=== PATIENT | male | born 1985 | race Caucasian/White ===

== ENCOUNTER 2020-05-12 20:46 | Emergency (ER) | payer BC, OTHER ==
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
--- NOTE | 2020-05-13 08:05 | CR ---
Chest: 2 views of the chest were obtained. Comparison: Prior chest x-ray of 12/18/12. Heart size and mediastinum are normal. Prior sternotomy is seen with prosthetic heart valves noted. Very minimal scarring within the left base is seen. Lungs otherwise are clear. Bony structures show nothing acute. Impression: 1. Prior sternotomy and prosthetic heart valve. 2. Slight scarring within the left lung base. 3. Nothing acute is appreciated on 2 view chest x-ray. Diagnostic code #2
== END 2020-05-13 00:18 | disposition home or self-care (01) ==
LOC: JD.ED 20:46
DX: S20.212A Contusion of left front wall of thorax, initial encounter (principal); Z79.82 Long term (current) use of aspirin; Z79.01 Long term (current) use of anticoagulants; Z79.899 Other long term (current) drug therapy; Y04.0XXA Assault by unarmed brawl or fight, initial encounter
CPT/HCPCS: 36415; 71046; 71046-26; 80053; 82553; 83880; 84484; 85025; 85610; 93005; 93010; 99283; 99284-25

== ENCOUNTER 2020-06-14 09:35 | Emergency (ER) | payer OTHER ==
[2020-06-14] MEDS ORDERED: HYDROmorphone 1 MG/ML Syringe IVPUSH ONE (10:17)
[2020-06-14] MEDS ORDERED: Metoclopramide 10 MG/2 ML SDV IVPUSH ONE (10:17)
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
[2020-06-14] MEDS ORDERED: Dextrose 5%-0.9% NaCl 1,000 ML IV SCH (10:30)
[2020-06-14] MEDS ORDERED: Sodium Chloride 0.9% 10 ML Syringe FLUSH PRN (10:36)
[2020-06-14] MEDS ORDERED: Iopamidol 612 MG/ML 50 ML SDV IVPUSH ONE (10:36)
[2020-06-14] MEDS ORDERED: Iopamidol 612 MG/ML 100 ML Bottle IVPUSH ONE (10:36)
--- NOTE | 2020-06-14 11:24 | CT ---
Head CT Technique: Multiple axial sections through the brain were obtained. Intravenous contrast was not utilized. Reconstructed coronal and sagittal images were obtained. Comparison: No prior intracranial imaging is available. Findings: Ventricles along with basal cisterns and sulci over the convexities appear within normal limits for the patient's age. No abnormal parenchymal densities are seen. No evidence of intracranial hemorrhage. No midline shift or mass-effect is seen. Bone window settings were reviewed which show scattered mucosal thickening within the maxillary, ethmoid and frontal sinuses. Visualized mastoid sinuses show nothing acute. No acute calvarial finding is seen. Impression: 1. Findings within the paranasal sinuses compatible with mild chronic sinusitis. 2. No acute intracranial abnormality is appreciated. Diagnostic code #2
--- NOTE | 2020-06-14 11:28 | CT ---
CT cervical spine Technique: Multiple axial sections were obtained from above C1 inferiorly to the bottom of T3. Reconstructed coronal and sagittal images were obtained. Findings: Mild disc space narrowing is noted at C5-6 as well as anterior disc space narrowing at C3-4 and C4-5. Vertebral body heights are maintained. Fractures are seen within the tip of the spinous process of C7 and T1 which appear to be slightly sclerotic and are most likely old. No definite acute fracture line is appreciated. No bony central or bony neural foraminal stenosis is seen. No abnormal subluxation is seen. Slight scoliosis is noted on the AP reconstructed views. Impression: 1. Fractures within the tip of the spinous process of C7 and T1 which appear slightly sclerotic and are most likely old unless patient has acute symptoms to the lower cervical spine posteriorly. 2. Minimal degenerative change. 3. Slight scoliosis. 4. No additional fracture or subluxation is seen. Diagnostic code #3
--- NOTE | 2020-06-14 11:38 | CT ---
CT chest Technique: Multiple axial sections through the chest were obtained. Intravenous contrast was utilized. Comparison: Prior chest x-rays of 05/12/20 and 12/18/12. Findings: No pericardial thickening is seen. Aortic valve is noted. Prior sternotomy is seen. Thoracic aorta shows no aneurysm. No mediastinal or hilar adenopathy is seen. Visualized lung shows nothing acute. No acute osseous finding is appreciated on bone window settings. Impression: 1. Prosthetic aortic valve. Sternotomy wires. 2. Nothing acute is appreciated on CT study of the chest. Diagnostic code #2 CT abdomen and pelvis Technique: Multiple axial sections were obtained from above the dome of the diaphragm inferiorly through the pubic symphysis. Intravenous contrast was utilized. No oral contrast was given. Reconstructed coronal and sagittal images were obtained. Findings: Liver shows no focal parenchymal abnormality. Spleen appears within normal limits. Adrenal glands show no nodule. Pancreas appears within normal limits. Gallbladder contains no calcified gallstones. Kidneys show symmetric contrast enhancement with no hydronephrosis or mass being seen. Abdominal aorta shows no aneurysm. No retroperitoneal adenopathy or mesenteric abnormalities are seen. Appendix is seen which is normal in size. No pelvic mass or adenopathy is noted. No free fluid or inflammatory change is appreciated. Bone window settings were reviewed which show no acute osseous finding. Impression: 1. Nothing acute is seen on CT study of the abdomen and pelvis. Diagnostic code #1
--- NOTE | 2020-06-14 11:39 | CT ---
CT lumbar spine Technique: Multiple axial sections through the lumbar spine were obtained. Reconstructed coronal and sagittal images were obtained. Findings: Mild vacuum phenomena is seen within the sacroiliac joints. No bony central or bony neural foraminal stenosis is seen. No acute fracture or abnormal subluxation is appreciated. Slight disc space narrowing is noted at L4-5. Impression: 1. Minimal degenerative change. 2. Nothing acute is seen on CT study of the lumbar spine. Diagnostic code #2
--- NOTE | 2020-06-14 11:39 | CR ---
Right clavicle: 2 views of the right clavicle were obtained. Slight degenerative change within the acromioclavicular joint with no abnormal inferior spurring. Sternotomy wires are seen. No acute fracture or other abnormality is seen. Impression: 1. Findings believed to be incidental. 2. No acute fracture is seen. Diagnostic code #2
--- NOTE | 2020-06-14 11:43 | CT ---
CT thoracic spine Technique: Multiple axial sections through the thoracic spine were obtained. Reconstructed coronal and sagittal images were obtained. Findings: Spinous process fracture is noted within C7 and T1. As mentioned on cervical spine exam, these are most likely old. Additional bony densities are seen off the spinous process at T3 and T6 which are likely old. Vertebral body heights and disc spaces are maintained. Vertebral bodies and posterior arches are intact with no fracture being seen. No bony central or bony neural foraminal stenosis is seen. Impression: 1. Fractures believed to be old within the tip of the spinous process of C7 and T1. Smaller findings also noted at T3 and T6 which are likely old. 2. Nothing acute is appreciated on CT study of the thoracic spine. Diagnostic code #2
== END 2020-06-14 12:44 | disposition home or self-care (01) ==
LOC: JD.ED 09:35
DX: S13.4XXA Sprain of ligaments of cervical spine, initial encounter (principal); S40.011A Contusion of right shoulder, initial encounter; S70.11XA Contusion of right thigh, initial encounter; S20.211A Contusion of right front wall of thorax, initial encounter; S70.12XA Contusion of left thigh, initial encounter; V48.5XXA Car driver injured in noncollision transport accident in traffic accident, initial encounter
CPT/HCPCS: 36415; 70450; 70450-26; 71260; 71260-26; 72125; 72125-26; 72128; 72128-26; 72131; 72131-26; 73000-26-RT; 73000-RT; 74177; 74177-26; 80053; 82150; 83735; 84484; 85025; 85610; 85730; 96374; 96375; 99284; 99284-25; J1170; J2765; J7042; Q9967

== ENCOUNTER 2020-10-03 14:10 | Emergency (ER) | payer OTHER ==
--- NOTE | 2020-10-03 14:59 | EDM.PDOC ---
ED HPI GENERAL MEDICAL PROBLEM - General Chief Complaint: Cardiovascular Problem Stated Complaint: CHEST PRESSURE Time Seen by Provider: 10/03/20 14:50 Source of Information: Reports: Patient History Limitations: Reports: No Limitations - History of Present Illness INITIAL COMMENTS - FREE TEXT/NARRATIVE: 35-year-old male presents to the ED in the accompaniment of his after developing central chest pressure discomfort rating up into the left upper anterior chest but not into the neck or down his left arm about an hour prior to coming to the ED. He estimates the chest discomfort lasted a good half hour. It is eased up a good deal since coming into the ED. Patient takes Coumadin 7 mg daily due to mechanical valve replacing his aortic valve in 2019. He does not know if he has had a history of congestive heart failure. He states that shortly after surgery when he was in [place] he was drinking alcohol heavily with the Coumadin and developed a cardiac tamponade requiring drainage of the pericardium. His initial ECG done in the ED reveals a diffuse early repolarization pattern particular noted in V1 to be [address] then looks like [address] segment elevation V5 and V6 and certainly ST segment elevation in leads I, II, and aVF worrisome for acute inferior wall myocardial infarction. Tall R waves in lead I suggest left ventricular perjury pattern. This could suggest a diffuse pericarditis versus myocardial infarction. He would be unlikely to infarct at his age and also if his warfarin or Coumadin level is satisfactory. He was given 4 baby aspirin chewed at this time will find other ECGs to compare to. Onset: Today, Sudden Onset Date: 10/03/20 Onset Time: 14:00 Duration: Minutes:, Improving Location: Reports: Chest (Much improved after getting into the emergency room. Left upper) Quality: Reports: Ache ( anterior precordial chest), Pressure Severity: Moderate (He rated as an 8 out of 10 initially but is down to a 1 out of 10 now.) Improves with: Reports: Rest Worsens with: Reports: Movement (Is worse with movement.) Context: Denies: Activity, Exercise, Lifting, Sick Contact, Trauma Associated Symptoms: Reports: Chest Pain, Loss of Appetite, Malaise, Shortness of Breath. 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: Other (see below) (Medications.) Chest Pain Score (Numeric/FACES): 3 - Related Data Allergies Allergy/AdvReac Type Severity Reaction Status Date / Time No Known Allergies Allergy Verified 06/14/20 10:12 Home Meds: Home Meds Aspirin [Aspirin EC] 81 mg PO DAILY 05/12/20 [History] Losartan [Cozaar] 100 mg PO BID 05/12/20 [History] Warfarin Sodium [Jantoven] 7 mg PO DAILY 05/12/20 [History] atorvaSTATin [Lipitor] 20 mg PO BEDTIME 05/12/20 [History] carvediloL [Carvedilol] 25 mg PO DAILY 05/12/20 [History] oxyCODONE HCl/Acetaminophen [Percocet 10-325 mg Tablet] 1 - 2 each PO Q4H PRN #20 tablet 06/14/20 [Rx] Colchicine 0.6 mg PO BID #20 capsule 10/03/20 [Rx] predniSONE [Prednisone] 20 mg PO ASDIRECTED #18 tablet 10/03/20 [Rx] Past Medical History Cardiovascular History: Reports: Heart Valve Replacement (Conical aortic valve replacement in 2019), Other (See Below) (She did develop hemorrhagic pericarditis and cardiac tamponade requiring drainage within 2 months of surgery. It was blamed on drinking alcohol in high amounts with Coumadin.) Musculoskeletal History: Reports: Fracture Endocrine/Metabolic History: Reports: Obesity/BMI 30+ Hematologic History: Reports: Anticoagulation Therapy - Past Surgical History Cardiovascular Surgical History: Reports: Valve Replacement, Other (See Below) Other Cardiovascular Surgeries/Procedures: Mechanical left ventricle valve replacement and aorta root repair in January 2019. Social & Family History - Tobacco Use Tobacco Use Status *Q: Never Tobacco User - Caffeine Use Caffeine Use: Reports: Tea - Recreational Drug Use Recreational Drug Use: Yes Drug Use in Last 12 Months: Yes Recreational Drug Type: Reports: Marijuana/Hashish - Living Situation & Occupation Living situation: Reports: Single Occupation: Employed ED ROS GENERAL - Review of Systems Review Of Systems: See Below Constitutional: Reports: Malaise, Weakness, Fatigue, Decreased Appetite. Denies: Fever, Chills, Weight Loss HEENT: Reports: No Symptoms Respiratory: Reports: Shortness of Breath. Denies: Wheezing, Pleuritic Chest Pain, Cough (Productive), Sputum, Hemoptysis Cardiovascular: Reports: Chest Pain, Blood Pressure Problem (Precordial chest pressure discomfort). Denies: Claudication, Dyspnea on Exertion, Edema, Lightheadedness, Orthopnea ( mild chronic hypertension), Palpitations Endocrine: Reports: Fatigue GI/Abdominal: Reports: No Symptoms : Reports: No Symptoms Musculoskeletal: Reports: Shoulder Pain (Is a low back pain), Back Pain Skin: Reports: No Symptoms Neurological: Denies: Confusion, Dizziness, Headache, Numbness, Seizure, Syncope, Tingling, Difficulty Walking, Weakness Psychiatric: Reports: No Symptoms Hematologic/Lymphatic: Reports: No Symptoms Immunologic: Reports: No Symptoms ED EXAM, GENERAL - Physical Exam Exam: See Below Exam Limited By: No Limitations General Appearance: Alert, WD/WN, Mild Distress, Other (Temperature is 36.2 degrees. Heart rate 72 and sinus. Respiratory to 16 with O2 sats of 94 to 96% room air. BP 147/89. Blood pressure subsequently has come down to 138/85.) Eye Exam: Bilateral Eye: Normal Inspection (No blepharal pallor or scleral icterus identified), PERRL Throat/Mouth: Normal Inspection, Normal Lips, Normal Oropharynx Head: Atraumatic, Normocephalic Neck: Normal Inspection, Supple, Non-Tender, Full Range of Motion. No: Carotid Bruit, Lymphadenopathy (L), Lymphadenopathy (R) Respiratory/Chest: No Respiratory Distress, Lungs Clear, Normal Breath Sounds, No Accessory Muscle Use, Chest Non-Tender Cardiovascular: Normal Peripheral Pulses, Regular Rate, Rhythm, No Edema, No Gallop, No Murmur, No Rub, Other (Healed midline sternotomy incision.) Peripheral Pulses: 2+: Posterior Tibial (L), Posterior Tibial (R), Dorsalis Pedis (L), Dorsalis Pedis (R), 3+: Carotid (L), Carotid (R) GI/Abdominal: Normal Bowel Sounds, Soft, Non-Tender, No Organomegaly, No Mass, Pelvis Stable, Other (Mild obesity.). No: Guarding, Rigid, Rebound, Tender Back Exam: Normal Inspection, Full Range of Motion. No: CVA Tenderness (L), CVA Tenderness (R) Extremities: Normal Inspection, Normal Range of Motion, Non-Tender, No Pedal Edema Neurological: Alert, Oriented, CN II-XII Intact, Normal Cognition, Normal Gait Psychiatric: Anxious Skin Exam: Warm, Dry, Intact, Normal Color, No Rash #1 Interpretation EKG Date: 10/03/20 Time: 14:38 Rhythm: NSR Rate (Beats/Min): 65 Hardy: Normal P-Wave: Enlarged (Consider left atrial hypertrophy) QRS: Other (Initial poor R wave progression. Nonspecific intraventricular conduction delay.) ST-T: Other (Diffuse early repolarization pattern particularly noted in leads V1 to V3. T wave flattening in lead I and inversion in aVL.) QT: Normal EKG Interpretation Comments: Abnormal ECG. Acute pericarditis versus inferior apical infarct. Course - Vital Signs Last Recorded V/S: Last Vital Signs Temp 36.6 C 10/03/20 18:20 Pulse 86 10/03/20 18:20 Resp 17 10/03/20 18:20 BP 138/82 10/03/20 18:20 Pulse Ox 98 10/03/20 18:20 - Orders/Labs/Meds Orders: Active Orders 24 hr Category Date Time Status Chest 1V Frontal [CR] Stat Exams 10/03/20 15:00 Taken Labs: Laboratory Tests 10/03/20 10/03/20 10/03/20 Range/Units 14:29 14:29 14:29 WBC 6.85 (4.23-9.07) K/mm3 RBC 5.54 (4.63-6.08) M/mm3 Hgb 16.5 (13.7-17.5) gm/dl Hct 46.4 (40.1-51.0) % MCV 83.8 (79.0-92.2) fl MCH 29.8 (25.7-32.2) pg MCHC 35.6 H (32.2-35.5) g/dl RDW Std Deviation 39.4 (35.1-43.9) fL Plt Count 196 (163-337) K/mm3 MPV 11.0 (9.4-12.3) fl Neut % (Auto) 50.3 (34.0-67.9) % Lymph % (Auto) 31.8 (21.8-53.1) % Bay % (Auto) 11.2 (5.3-12.2) % Eos % (Auto) 6.0 (0.8-7.0) Baso % (Auto) 0.6 (0.1-1.2) % Neut # (Auto) 3.44 (1.78-5.38) K/mm3 Lymph # (Auto) 2.18 (1.32-3.57) K/mm3 Bay # (Auto) 0.77 (0.30-0.82) K/mm3 Eos # (Auto) 0.41 (0.04-0.54) K/mm3 Baso # (Auto) 0.04 (0.01-0.08) K/mm3 PT 22.5 H (9.7-12.0) SECONDS INR 2.13 Sodium 142 (136-145) mEq/L Potassium 4.2 (3.5-5.1) mEq/L Chloride 105 (98-107) mEq/L Carbon Dioxide 25 (21-32) mEq/L Anion Gap 16.2 H (5-15) BUN 8 (7-18) mg/dL Creatinine 0.9 (0.7-1.3) mg/dL Est Cr Clr Drug Dosing 122.01 mL/min Estimated GFR (MDRD) > 60 (>60) mL/min BUN/Creatinine Ratio 8.9 L (14-18) Glucose 100 H (70-99) mg/dL Calcium 9.3 (8.5-10.1) mg/dL Magnesium 2.0 (1.8-2.4) mg/dL Total Bilirubin 0.7 (0.2-1.0) mg/dL AST 31 (15-37) U/L ALT 54 (16-63) U/L Alkaline Phosphatase 81 (46-116) U/L CK-MB (CK-2) 1.6 (0-3.6) ng/ml Troponin I 0.088 H* (0.00-0.056) ng/mL NT-Pro-B Natriuret Pep (0-125) pg/mL Total Protein 7.6 (6.4-8.2) g/dl Albumin 4.2 (3.4-5.0) g/dl Globulin 3.4 gm/dL Albumin/Globulin Ratio 1.2 (1-2) 10/03/20 Range/Units 14:29 WBC (4.23-9.07) K/mm3 RBC (4.63-6.08) M/mm3 Hgb (13.7-17.5) gm/dl Hct (40.1-51.0) % MCV (79.0-92.2) fl MCH (25.7-32.2) pg MCHC (32.2-35.5) g/dl RDW Std Deviation (35.1-43.9) fL Plt Count (163-337) K/mm3 MPV (9.4-12.3) fl Neut % (Auto) (34.0-67.9) % Lymph % (Auto) (21.8-53.1) % Bay % (Auto) (5.3-12.2) % Eos % (Auto) (0.8-7.0) Baso % (Auto) (0.1-1.2) % Neut # (Auto) (1.78-5.38) K/mm3 Lymph # (Auto) (1.32-3.57) K/mm3 Bay # (Auto) (0.30-0.82) K/mm3 Eos # (Auto) (0.04-0.54) K/mm3 Baso # (Auto) (0.01-0.08) K/mm3 PT (9.7-12.0) SECONDS INR Sodium (136-145) mEq/L Potassium (3.5-5.1) mEq/L Chloride (98-107) mEq/L Carbon Dioxide (21-32) mEq/L Anion Gap (5-15) BUN (7-18) mg/dL Creatinine (0.7-1.3) mg/dL Est Cr Clr Drug Dosing mL/min Estimated GFR (MDRD) (>60) mL/min BUN/Creatinine Ratio (14-18) Glucose (70-99) mg/dL Calcium (8.5-10.1) mg/dL Magnesium (1.8-2.4) mg/dL Total Bilirubin (0.2-1.0) mg/dL AST (15-37) U/L ALT (16-63) U/L Alkaline Phosphatase (46-116) U/L CK-MB (CK-2) (0-3.6) ng/ml Troponin I (0.00-0.056) ng/mL NT-Pro-B Natriuret Pep 33 (0-125) pg/mL Total Protein (6.4-8.2) g/dl Albumin (3.4-5.0) g/dl Globulin gm/dL Albumin/Globulin Ratio (1-2) Meds: Medications Discontinued Medications Generic Name Dose Route Start Last Admin Trade Name Vero PRN Reason Stop Dose Admin Aspirin 324 mg 10/03/20 15:00 10/03/20 15:17 Aspirin 81 Mg Tab.Chew PO 10/03/20 15:01 324 mg ONETIME ONE Administration Colchicine 0.6 mg 10/03/20 16:34 10/03/20 16:55 Colchicine 0.6 Mg Tab PO 10/03/20 16:35 0.6 mg ONETIME ONE Administration Nitroglycerin/Dextrose 25 mg in 250 mls @ 3 mls/hr 10/03/20 15:00 Nitroglycerin 25 Mg/D5w 250 Ml IV TITRATE SHOAIB Protocol 5 MCG/MIN Prednisone 20 mg 10/03/20 16:35 10/03/20 16:55 Prednisone 20 Mg Tab PO 10/03/20 16:36 20 mg ONETIME ONE Administration - Radiology Interpretation Free Text/Narrative:: 35-year-old male presents to the ED after experiencing central left precordial chest discomfort for about a half an hour before deciding to come to the ED. It came on suddenly. He felt he was having a little bit more trouble walking upstairs today in the normal. Patient has had a previous aortic mechanical valve replacement done 2 years ago in 2019. This was complicated by the development of a hemorrhagic cardiac tamponade from using alcohol and high doses of Coumadin. He required drainage of his pericardium down in [place] where this occurred. ECG is abnormal showing a diffuse intraventricular conduction delay pattern and ST segment elevation in V5 V6 and leads II, III and aVF concerning for possible inferior apical infarct. It is definitely different when compared to ECG done in April of this year. I spoke with Dr. Castillo--quality compliance coordinator at [facility] in [place] and send him copies of the ECGs. He was able to verify that the cc changes were not necessarily new for the patient but suggested that it was most likely due to pericarditis. Labs are therefore pending. - Re-Assessments/Exams Free Text/Narrative Re-Assessment/Exam: 10/03/20 15:40: Chest x-ray reveals borderline cardiomegaly. Slight widening of the upper mediastinum. Prominence of the right pulmonary artery. No pleural effusions lung parenchyma are otherwise clear. Evidence of previous midline sternotomy with wires. 10/03/20 16:29 Count is 6.85 with 50% neutrophils. Hemoglobin 16.5 with hematocrit of 46.4. Platelet count is 196,000. PT is 22.5 with an INR of 2.13. Sodium 142 with potassium of 4.2. Chloride 105 with a bicarb of 25. Anion gap is 16.2. BUN is 8 with a creatinine of 0.9 and GFR greater than 60. Glucose 100. Calcium is 9.3 magnesium is 2.0 liver function is normal. CK-MB was 1.6 troponin I is mildly elevated at 0.088. BNP is 33 total protein is 7.6 with an albumin fraction of 4.2. 10/03/20 16:32 I did speak with the patient the findings of the labs. It is the opinion of cardiology that this represents pericarditis. Plan will be to treat him with colchicine 0.6 mg twice daily for the next 12 days and prednisone 20 mg twice daily for 6 days and then once daily in the morning for another 6 days to reduce inflammation. He is advised to follow-up with Dr. Moon in [facility] [place] early next week. Departure - Departure Time of Disposition: 16:35 Disposition: Home, Self-Care 01 Reason for Transfer *Q: Other Condition: Fair Clinical Impression: Pericarditis Qualifiers: Pericarditis type: idiopathic Chronicity: acute Qualified Code(s): I30.0 - Acute nonspecific idiopathic pericarditis Prescriptions: Colchicine 0.6 mg PO BID #20 capsule predniSONE [Prednisone] 20 mg PO ASDIRECTED #18 tablet Instructions: Pericarditis Referrals: Abena Ulloa NP [Primary Care Provider] - Forms: ED Department Discharge Additional Instructions: Evaluation in the emergency room today in regards to development of central and upper left chest discomfort with abnormal ECG findings. After discussion with cardiology services at [facility] in [place] we were able to look at several ECGs done over the last couple of years and it is felt that you have developed acute inflammation of the sac around your heart called the pericardium. The inflammation is called pericarditis and the cause is most often viral but for the most part is unknown. Lab test do not show any signs of bacterial infection. Treatment is colchicine 0.6 mg twice daily which acts as an anti-inflammatory for acute pericarditis. Use this twice daily for the next 10 days. Use prednisone 20 mg in the morning and 20 mg at suppertime for 6 days and then 1 tablet in the morning only with breakfast for 6 days to further relieve inflammation of the pericardium. Follow-up with Dr. Moon is suggested early next week to make sure you are on the right track to improvement. Copies of today's lab tests and ECGs will be sent with you to provide to her. Continue your Coumadin as per instructions per Coumadin clinic. Sepsis Event Note (ED) - Evaluation Sepsis Screening Result: No Definite Risk - My Orders Last 24 Hours: My Active Orders 10/03/20 15:00 Chest 1V Frontal [CR] Stat - Assessment/Plan Last 24 Hours: My Active Orders 10/03/20 15:00 Chest 1V Frontal [CR] Stat
[2020-10-03] MEDS ORDERED: Nitroglycerin/D5W 25 MG/250 ML BOTTLE IV SCH (15:00)
[2020-10-03] MEDS ORDERED: Aspirin 81 MG Tab.Chew PO ONE (15:00)
[2020-10-03] MEDS ORDERED: Colchicine 0.6 MG Tab PO ONE (16:34)
[2020-10-03] MEDS ORDERED: predniSONE 20 MG Tab PO ONE (16:35)
--- NOTE | 2020-10-04 07:51 | CR ---
Chest: Portable view of the chest was obtained in AP projection. Comparison: Prior chest x-ray of 05/12/20. Heart size and mediastinum are within normal limits. Sternotomy wires are noted which are stable. Lungs are clear with no acute parenchymal change. No acute osseous abnormality is appreciated. Impression: 1. Nothing acute is appreciated on portable chest x-ray. Diagnostic code #2
== END 2020-10-03 18:20 | disposition home or self-care (01) ==
LOC: JD.ED 14:10
DX: I30.0 Acute nonspecific idiopathic pericarditis (principal); E66.9 Obesity, unspecified; Z68.39 Body mass index [BMI] 39.0-39.9, adult; Z79.82 Long term (current) use of aspirin; Z79.01 Long term (current) use of anticoagulants; Z79.899 Other long term (current) drug therapy
CPT/HCPCS: 36415; 71045; 80053; 82553; 83735; 83880; 84484; 85025; 85610; 93005; 99285; A9270; J7512; 93010; 99284

== ENCOUNTER 2022-01-31 23:30 | Emergency (ER) | payer OTHER | END 2022-02-01 03:30 | disposition home or self-care (01) | LOC: JD.ED 23:30 | DX: S61.052A Open bite of left thumb without damage to nail, initial encounter (principal); L03.012 Cellulitis of left finger; E66.9 Obesity, unspecified; Z68.37 Body mass index [BMI] 37.0-37.9, adult; Z79.82 Long term (current) use of aspirin; Z79.899 Other long term (current) drug therapy; W55.01XA Bitten by cat, initial encounter | CPT/HCPCS: 36415; 71045; 71045-26; 80053; 83735; 84443; 84484; 85025; 93005; 99285 ==